=== PATIENT | male | born 1990 | race Two or more races ===

== ENCOUNTER 2021-01-05 11:00 | Emergency (ER) | payer OTHER ==
[~2021-01-05] VITALS: Ht 180.3 cm; Wt 95.3 kg
[2021-01-05] MEDS ORDERED: NIZORAL SHAMPO120 ML TOP (11:38)
[2021-01-05] MEDS ORDERED: GRISEOFULVIN500 MG PO (11:38)
[2021-01-05] MEDS ORDERED: DANDRUFF SHAMP (11:43)
== END 2021-01-05 12:14 | disposition home or self-care (01) ==
LOC: ER 11:00
DX: L21.8 Other seborrheic dermatitis (principal); B35.0 Tinea barbae and tinea capitis

== ENCOUNTER 2021-06-06 19:29 | Emergency (ER) | payer OTHER ==
[~2021-06-06] VITALS: Ht 180.3 cm; Wt 97.5 kg
[~2021-06-06 19:29] MED LIST: DANDRUFF SHAMP; GRISEOFULVIN500 MG PO; NIZORAL SHAMPO120 ML TOP
[2021-06-07] MEDS ORDERED: KETO10TA2 PO ×2 (02:39→02:40)
== END 2021-06-07 02:53 ==
LOC: ER 19:29
DX: S70.02XA Contusion of left hip, initial encounter (principal); S60.212A Contusion of left wrist, initial encounter; W13.2XXA Fall from, out of or through roof, initial encounter; Y93.H3 Activity, building and construction; Y92.61 Building [any] under construction as the place of occurrence of the external cause; Y99.8 Other external cause status